=== PATIENT | male | born 1955 | race Caucasian/White ===

== ENCOUNTER 2017-07-29 09:31 | Observation (INO) | payer OTHER, BC ==
[2017-07-29] MEDS ORDERED: Sodium Chloride 0.9% 2.5 ML Syringe FLUSH PRN ×2 (09:47→13:00)
[2017-07-29] MEDS ORDERED: Famotidine 20 MG/2 ML SDV IVPUSH ONE (09:47)
[2017-07-29] MEDS ORDERED: Sodium Chloride 0.9% 10 ML Syringe FLUSH PRN ×2 (09:47→13:00)
--- NOTE | 2017-07-29 09:50 | EDM.PDOC ---
ED HPI GENERAL MEDICAL PROBLEM - General Chief Complaint: Chest Pain Stated Complaint: AMB Time Seen by Provider: 07/29/17 09:47 Source of Information: Reports: Patient History Limitations: Reports: No Limitations - History of Present Illness INITIAL COMMENTS - FREE TEXT/NARRATIVE: History of present illness: []Patient was unloading a semitruck when he started having nonradiating substernal chest pain at 8:50 this morning. He denies any shortness of breath, sweating, dizziness, nausea, vomiting, lightheadedness or syncope. She does have a history of GERD. On EMS arrival patient was found to be hypertensive and 214/110. Patient notes that yesterday he had a similar episode that just lasted a few minutes and then subsided spontaneously. Review of systems: As per history of present illness and below otherwise all systems reviewed and negative. Past medical history: As per history of present illness and as reviewed below otherwise noncontributory. Surgical history: As per history of present illness and as reviewed below otherwise noncontributory. Social history: No reported history of drug or alcohol abuse. Family history: As per history of present illness and as reviewed below otherwise noncontributory. Physical exam: General: Well developed, well nourished in NAD HEENT: Atraumatic, normocephalic, pupils reactive, negative for conjunctival pallor or scleral icterus, mucous membranes moist, throat clear, neck supple, nontender, trachea midline. Lungs: Clear to auscultation, breath sounds equal bilaterally, chest nontender. Heart: S1S2, regular, negative for clicks, rubs, or JVD. Abdomen: Soft, nondistended, nontender. Negative for masses or hepatosplenomegaly. Negative for costovertebral tenderness. Pelvis: Stable nontender. Genitourinary: Deferred. Rectal: Deferred. Extremities: Atraumatic, negative for cords or calf pain. Neurovascular unremarkable. Neuro: Awake, alert, oriented. Cranial nerves II through XII unremarkable. Cerebellum unremarkable. Motor and sensory unremarkable throughout. Exam nonfocal. Diagnostics: []EKG without ischemic changes, chest x-ray is negative, labs normal and negative troponin Therapeutics: []Nitroglycerin with improvement of pain aspirin given prior to arrival at by EMS Impression: []Acute coronary syndrome Plan: []Admit for observation Definitive disposition and diagnosis as appropriate pending reevaluation and review of above. chest Pain Score (Numeric/FACES): 1 - Related Data Allergies Allergy/AdvReac Type Severity Reaction Status Date / Time No Known Allergies Allergy Verified 07/29/17 10:05 Home Meds: Home Meds . [Unable to Verify Home Med List] 07/29/17 [History] ED ROS GENERAL - Review of Systems Review Of Systems: See Below (See history of present illness) ED EXAM, GENERAL - Physical Exam Exam: See Below (See history of present illness) Course - Vital Signs Last Recorded V/S: Last Vital Signs Temp 97.8 F 07/29/17 09:35 Pulse 73 07/29/17 10:21 Resp 18 07/29/17 10:21 BP 126/82 07/29/17 10:21 Pulse Ox 95 07/29/17 10:21 - Orders/Labs/Meds Orders: Active Orders 24 hr Category Date Time Status Patient Status [ADT] Stat ADT 07/29/17 11:23 Active EKG Documentation Completion [RC] STAT Care 07/29/17 09:47 Active Oxygen Therapy, ED [RC] ASDIRECTED Care 07/29/17 09:47 Active Nitroglycerin [Nitrostat] Med 07/29/17 09:47 Active 0.4 mg SL Q5M PRN Sodium Chloride 0.9% [Saline Flush] Med 07/29/17 09:47 Active 10 ml FLUSH ASDIRECTED PRN Sodium Chloride 0.9% [Saline Flush] Med 07/29/17 09:47 Active 2.5 ml FLUSH ASDIRECTED PRN Saline Lock Insert [OM.PC] Stat Oth 07/29/17 09:47 Ordered Medication Orders Nitroglycerin (Nitrostat) 0.4 mg SL Q5M PRN PRN Reason: Chest Pain Last Admin: 07/29/17 10:20 Dose: 0.4 mg Admin: 07/29/17 10:10 Dose: 0.4 mg Sodium Chloride (Saline Flush) 10 ml FLUSH ASDIRECTED PRN PRN Reason: Keep Vein Open Last Admin: 07/29/17 10:46 Dose: 10 ml Sodium Chloride (Saline Flush) 2.5 ml FLUSH ASDIRECTED PRN PRN Reason: Keep Vein Open Last Admin: 07/29/17 10:46 Dose: 2.5 ml Labs: Laboratory Tests 07/29/17 07/29/17 Range/Units 10:01 10:01 WBC 4.16 (4.0-11.0) K/uL RBC 5.17 (4.50-5.90) M/uL Hgb 13.6 (13.0-17.0) g/dL Hct 41.5 (38.0-50.0) % MCV 80.3 (80.0-98.0) fL MCH 26.3 L (27.0-32.0) pg MCHC 32.8 (31.0-37.0) g/dL RDW Std Deviation 49.2 (28.0-62.0) fl RDW Coeff of Man 17 H (11.0-15.0) % Plt Count 258 (150-400) K/uL MPV 9.60 (7.40-12.00) fL Neut % (Auto) 52.9 (48.0-80.0) % Lymph % (Auto) 34.6 (16.0-40.0) % [place] % (Auto) 10.8 (0.0-15.0) % Eos % (Auto) 1.2 (0.0-7.0) % Baso % (Auto) 0.5 (0.0-1.5) % Neut # (Auto) 2.2 (1.4-5.7) K/uL Lymph # (Auto) 1.4 (0.6-2.4) K/uL [place] # (Auto) 0.5 (0.0-0.8) K/uL Eos # (Auto) 0.1 (0.0-0.7) K/uL Baso # (Auto) 0.0 (0.0-0.1) K/uL Nucleated RBC % 0.0 /100WBC Nucleated RBCs # 0 K/uL Sodium 138 (136-146) mmol/L Potassium 4.1 (3.5-5.1) mmol/L Chloride 104 (98-110) mmol/L Carbon Dioxide 25 (21-31) mmol/L BUN 10 (6.0-23.0) mg/dL Creatinine 0.8 (0.6-1.5) mg/dL Est Cr Clr Drug Dosing 99.35 mL/min Estimated GFR (MDRD) > 60.0 ml/min Glucose 128 H (60-110) mg/dL Calcium 9.1 (8.8-10.8) mg/dL Total Bilirubin 0.4 (0.1-1.5) mg/dL AST 15 (5-40) IU/L ALT 18 (8-54) IU/L Alkaline Phosphatase 72 (40-150) Troponin I < 0.10 (0.0-0.29) NG/ML Total Protein 7.0 (6.0-8.0) g/dL Albumin 4.2 (3.4-4.8) g/dL Globulin 2.8 (2.0-3.5) g/dL Albumin/Globulin Ratio 1.5 (1.3-2.8) Meds: Medications Generic Name Dose Route Start Last Admin Trade Name F[place]a PRN Reason Stop Dose Admin Nitroglycerin 0.4 mg 07/29/17 09:47 07/29/17 10:20 Nitrostat SL 0.4 mg Q5M PRN Administration Chest Pain Sodium Chloride 10 ml 07/29/17 09:47 07/29/17 10:46 Saline Flush FLUSH 10 ml ASDIRECTED PRN Administration Keep Vein Open Sodium Chloride 2.5 ml 07/29/17 09:47 07/29/17 10:46 Saline Flush FLUSH 2.5 ml ASDIRECTED PRN Administration Keep Vein Open Discontinued Medications Generic Name Dose Route Start Last Admin Trade Name Franc PRN Reason Stop Dose Admin Famotidine 20 mg 07/29/17 09:47 07/29/17 10:11 Pepcid IVPUSH 07/29/17 09:48 20 mg ONETIME ONE Administration Departure - Departure Time of Disposition: 11:25 Disposition: Refer to Observation Condition: Good Clinical Impression: Acute coronary syndrome Forms: ED Department Discharge - My Orders Last 24 Hours: My Active Orders 07/29/17 09:47 EKG Documentation Completion [RC] STAT Oxygen Therapy, ED [RC] ASDIRECTED Nitroglycerin [Nitrostat] 0.4 mg SL Q5M PRN Sodium Chloride 0.9% [Saline Flush] 10 ml FLUSH ASDIRECTED PRN Sodium Chloride 0.9% [Saline Flush] 2.5 ml FLUSH ASDIRECTED PRN Saline Lock Insert [OM.PC] Stat 07/29/17 11:23 Patient Status [ADT] Stat - Assessment/Plan Last 24 Hours: My Active Orders 07/29/17 09:47 EKG Documentation Completion [RC] STAT Oxygen Therapy, ED [RC] ASDIRECTED Nitroglycerin [Nitrostat] 0.4 mg SL Q5M PRN Sodium Chloride 0.9% [Saline Flush] 10 ml FLUSH ASDIRECTED PRN Sodium Chloride 0.9% [Saline Flush] 2.5 ml FLUSH ASDIRECTED PRN Saline Lock Insert [OM.PC] Stat 07/29/17 11:23 Patient Status [ADT] Stat
[2017-07-29] MEDS: Nitroglycerin 0.4 MG Tab.SL SL PRN ×2 (10:10→10:20)
--- NOTE | 2017-07-29 10:37 | CR ---
EXAMINATION: Portable chest radiograph. HISTORY: Shortness of breath. FINDINGS: The trachea is midline. The cardiomediastinal silhouette is within normal limits. No pulmonary infilt rates, effusions or pneumothorax. Mild interstitial prominence. Probable moderate hiatal hernia. Osseous structures appear unremarkable. IMPRESSION: No acute cardiopulmonary process.
[2017-07-29 11:04] LABS: CHLORIDE,CL 104 mmol/L (98-110); SODIUM,NA 138 mmol/L (136-146)
[2017-07-29] MEDS ORDERED: Morphine 2 MG/ML Syringe IVPUSH ONE (12:33)
[2017-07-29] MEDS ORDERED: Acetaminophen 325 MG Tab PO PRN (13:00)
[2017-07-29] MEDS ORDERED: Morphine 2 MG/ML Syringe IVPUSH PRN (13:00)
[2017-07-29] MEDS ORDERED: Ondansetron 4 MG/2 ML SDV IVPUSH PRN (13:00)
[2017-07-29] MEDS ORDERED: Ketorolac 30 MG/ML SDV IV PRN (13:00)
[2017-07-29] MEDS ORDERED: Alum Hydrox/Mag Hydrox/Simeth 15 ML, Metoclopramide 5 MG, Lidocaine 2% 5 ML PO ONE ×3 (13:30)
--- NOTE | 2017-07-29 13:47 | PCM.HP ---
H&P History of Present Illness - General Date of Service: 07/29/17 Admit Problem/Dx: Admission Diagnosis/Problem Admission Diagnosis/Problem Acute coronary syndrome Source of Information: Patient History Limitations: Reports: No Limitations - History of Present Illness Initial Comments - Free Text/Narative: This is a 62-year-old male presenting with acute chest pain. Patient says the chest pain started yesterday, it is central chest in nature, burning sensation. Patient stated that yesterday the pain came about for about 30 minutes and then dissipated. Patient states that he does not take any medications to reduce the pain yesterday. He states that he was working when the pain occurred. Patient states that this morning the pain started around 8: 30 while he was unloading a truck at work. He states the pain was substernal in nature nonradiating, a burning sensation. Patient denied any pressure type symptoms, any radiation to the arm, any shortness of breath, sweating, nausea, vomiting, lightheadedness or syncopal episode. Patient's only medical history is gastroesophageal reflux disease for which he states he takes a PPI. Patient denies any cardiovascular history, patient denies any hypertension or hyperlipidemia history, nor any diabetes history.Patient denies any [place] history/ in his family, patient states that his father possibly had a TIA early on which resolved and did not have any further symptoms. In the ER, patient received sublingual nitroglycerin and aspirin which alleviated his pain., EKG did not show any ischemic changes, chest x-ray showed no cardiopulmonary process, labs were relatively normal with the exception of an elevated glucose level. In first set of troponins were negative. Onset of Symptoms: Reports: Today, Sudden chest Pain Score (Numeric/FACES): 10 - Related Data Allergies/Adverse Reactions: Allergies Allergy/AdvReac Type Severity Reaction Status Date / Time No Known Allergies Allergy Verified 07/29/17 10:05 Home Medications: Home Meds . [Unable to Verify Home Med List] 07/29/17 [History] Past Medical History HEENT History: Reports: Impaired Vision Gastrointestinal History: Reports: GERD - Infectious Disease History Infectious Disease History: Reports: Chicken Pox, Measles, Mumps, Shingles - Past Surgical History Other Male Surgeries/Procedures: "bladder surgery" Musculoskeletal Surgical History: Reports: Other (See Below) Other Musculoskeletal Surgeries/Procedures:: left shoudler pins Social & Family History - Family History Family Medical History: Noncontributory - Tobacco Use Smoking Status *Q: Former Smoker Used Tobacco, but Quit: Yes Month Tobacco Last Used: 1979 - Recreational Drug Use Recreational Drug Use: No H&P Review of Systems - Review of Systems: Review Of Systems: ROS reveals no pertinent complaints other than HPI. Exam - Exam Exam: See Below - Vital Signs Vital Signs: Last Vital Signs Temp 36.6 C 07/29/17 09:35 Pulse 73 07/29/17 10:21 Resp 18 07/29/17 10:21 BP 126/82 07/29/17 10:21 Pulse Ox 95 07/29/17 10:21 Weight: 92.986 kg - Exam General: Alert, Cooperative HEENT: Conjunctiva Clear, Mucosa Moist & [place] Neck: Supple, Trachea Midline Lungs: Clear to Auscultation, Normal Respiratory Effort Cardiovascular: Regular Rate, Regular Rhythm, Other GI/Abdominal Exam: Normal Bowel Sounds Extremities: Normal Inspection, Normal Range of Motion, No Pedal Edema, Normal Capillary Refill - Patient Data Result Diagrams: 07/29/17 10:01 07/29/17 10:01 EKG INTERPRETATION EKG Date: 07/29/17 Time: 13:00 Rhythm: NSR [place]: Normal P-Wave: Present QRS: Normal ST-T: Normal QT: Normal Comparison: No Change *Q Meaningful Use (ADM) - VTE *Q VTE Criteria *Q: - Stroke *Q Stroke Criteria *Q: - AMI *Q AMI Criteria *Q: - Problem List (1) Gastroesophageal reflux disease SNOMED Code(s): 181281222 ICD Code: K21.9 - GASTRO-ESOPHAGEAL REFLUX DISEASE WITHOUT ESOPHAGITIS Status: Acute Current Visit: Yes (2) Atypical chest pain SNOMED Code(s): 336188282 ICD Code: R07.89 - OTHER CHEST PAIN Status: Acute Current Visit: Yes (3) History of herpes zoster SNOMED Code(s): 910163618966702 ICD Code: Z86.19 - PERSONAL HISTORY OF OTHER INFECTIOUS AND PARASITIC DISEASES Status: Acute Current Visit: Yes (4) Acute coronary syndrome SNOMED Code(s): 540748771 ICD Code: I24.9 - ACUTE ISCHEMIC HEART DISEASE, UNSPECIFIED Status: Acute Current Visit: Yes Problem List Initiated/Reviewed/Updated: Yes Orders Last 24hrs: Active Orders 24 hr Category Date Time Status Patient Status [ADT] Routine ADT 07/29/17 13:02 Active Antiembolic Devices [RC] PER UNIT ROUTINE Care 07/29/17 13:05 Active Cardiac Monitoring [RC] CONTINUOUS Care 07/29/17 13:03 Active EKG Documentation Completion [RC] PRN Care 07/29/17 13:00 Active EKG Documentation Completion [RC] STAT Care 07/29/17 12:37 Active Height and Weight [RC] UPON Care 07/29/17 13:00 Active Intake and Output [RC] QSHIFT Care 07/29/17 13:03 Active Notify Provider Vital Signs [RC] ASDIRECTED Care 07/29/17 13:03 Active Oxygen Therapy [RC] PRN Care 07/29/17 13:02 Active Peripheral IV Care [RC] . DIRECTED Care 07/29/17 13:00 Active Pulse Oximetry [RC] PRN Care 07/29/17 13:03 Active Telemetry Monitoring [Cardiac Monitoring] [RC] . Care 07/29/17 13:32 Active DIRECTED Up With Assistance [RC] ASDIRECTED Care 07/29/17 13:00 Active VTE/DVT Education [RC] PER UNIT ROUTINE Care 07/29/17 13:02 Active Vital Signs [RC] Q4H Care 07/29/17 13:02 Active Heart Healthy Diet [DIET] Diet 07/29/17 Breakfast Active BASIC METABOLIC PANEL,BMP [CHEM] AM Lab 07/30/17 05:11 Ordered CBC WITH AUTO DIFF [HEME] AM Lab 07/30/17 05:11 Ordered GLYCOSYLATED HEMOGLOBIN,HGBA1C [CHEM] Stat Lab 07/29/17 10:01 Received TROPONIN I [CHEM] Q8H Lab 07/29/17 20:30 Ordered TROPONIN I [CHEM] Q8H Lab 07/30/17 04:30 Ordered UA W/MICROSCOPIC [URIN] Routine Lab 07/29/17 13:26 Ordered Acetaminophen [Tylenol] Med 07/29/17 13:00 Active 650 mg PO Q4H PRN Enoxaparin [Lovenox] Med 07/30/17 09:00 Active 40 mg SUBCUT DAILY Ketorolac [Toradol] Med 07/29/17 13:00 Active 30 mg IV Q6H PRN Morphine Med 07/29/17 13:00 Active 2 mg IVPUSH Q2H PRN Ondansetron [Zofran] Med 07/29/17 13:00 Active 4 mg IVPUSH Q4H PRN Pantoprazole [ProTONIX IV] Med 07/29/17 21:00 Active 40 mg IV Q12HR Sodium Chloride 0.9% [Saline Flush] Med 07/29/17 13:00 Active 10 ml FLUSH ASDIRECTED PRN Sodium Chloride 0.9% [Saline Flush] Med 07/29/17 13:00 Active 2.5 ml FLUSH ASDIRECTED PRN Peripheral IV Insertion Adult [OM.PC] Routine Oth 07/29/17 13:00 Ordered Saline Lock Insert [OM.PC] Routine Oth 07/29/17 13:00 Ordered Sequential Compression Device [OM.PC] Per Unit Routine Oth 07/29/17 13:04 Ordered Resuscitation Status Routine Resus Stat 07/29/17 13:00 Ordered Medication Orders Acetaminophen (Tylenol) 650 mg PO Q4H PRN PRN Reason: Pain (Mild 1-3)/fever Enoxaparin Sodium (Lovenox) 40 mg SUBCUT DAILY DEVIN Ketorolac Tromethamine (Toradol) 30 mg IV Q6H PRN PRN Reason: Pain (moderate 4-6) Morphine Sulfate (Morphine) 2 mg IVPUSH Q2H PRN PRN Reason: Pain (severe 7-10) Stop: 07/30/17 13:04 Nitroglycerin (Nitrostat) 0.4 mg SL Q5M PRN PRN Reason: Chest Pain Last Admin: 07/29/17 10:20 Dose: 0.4 mg Admin: 07/29/17 10:10 Dose: 0.4 mg Ondansetron HCl (Zofran) 4 mg IVPUSH Q4H PRN PRN Reason: Nausea/Vomiting Pantoprazole Sodium (Protonix Iv) 40 mg IV Q12HR DEVIN Sodium Chloride (Saline Flush) 10 ml FLUSH ASDIRECTED PRN PRN Reason: Keep Vein Open Last Admin: 07/29/17 10:46 Dose: 10 ml Sodium Chloride (Saline Flush) 2.5 ml FLUSH ASDIRECTED PRN PRN Reason: Keep Vein Open Last Admin: 07/29/17 10:46 Dose: 2.5 ml Sodium Chloride (Saline Flush) 10 ml FLUSH ASDIRECTED PRN PRN Reason: Keep Vein Open Sodium Chloride (Saline Flush) 2.5 ml FLUSH ASDIRECTED PRN PRN Reason: Keep Vein Open Assessment/Plan Comment:: Impressions: This is a 62-year-old male presenting with anterior chest pain which is burning in nature that is alleviated with nitroglycerin with a normal EKG and a relatively benign laboratory levels including troponin most likely etiology is atypical chest pain secondary to gastroesophageal reflux disease other etiologies to consider however unlikely include acute coronary syndrome, costochondritis is, reactivation of herpes zoster infection. Assessment: #1. Atypical chest pain burning in nature of the anterior chest without any radiation most likely etiology is gastroesophageal reflux disease other etiologies to rule out include acute coronary syndrome, costochondritis is, and reactivation of herpes zoster infection #2. Gastroesophageal reflux disease history #3. Elevated blood glucose and CMP #4. History of gastroesophageal reflux disease as well as herpes zoster infection. #1. Admit the patient under observation, anticipated length of stay is less than 2 midnights, patient is full code #2 vitals per unit protocol, continuous telemetry/cardiac monitoring, up with assistance for movement, heart healthy diet #3. For the atypical chest pain, ACS rule out with troponins 3, EKG when necessary for acute chest pain with initial notification to the provider prior to obtaining ECG. #4. For the atypical chest pain GI cocktail one time, sublingual nitroglycerin when necessary for chest pain, morphine when necessary for chest pain. #5. CBC, BMP in the a.m., troponin x3 every 8 hours, hemoglobin A1c, UA #6. Anticipated discharge tomorrow in a.m. provided troponins are negative 3 and patient is stable.
[2017-07-29] MEDS ORDERED: Alum Hydrox/Mag Hydrox/Simeth 15 ML, Lidocaine 2% 5 ML PO ONE ×2 (16:33)
[2017-07-29] MEDS ORDERED: Metoprolol Tartrate 5 MG/5 ML SDV IVPUSH ONE (19:16)
[2017-07-29] MEDS ORDERED: Pantoprazole 40 MG Vial IV SCH (21:00)
[2017-07-29] MEDS ORDERED: Aspirin 325 MG Tab PO ONE (21:26)
[2017-07-29] MEDS ORDERED: Aspirin 81 MG Tab.Chew PO STA (21:33)
[2017-07-29] MEDS ORDERED: Enoxaparin 100 MG/1 ML Syringe SUBCUT ONE (22:04)
--- NOTE | 2017-07-29 22:19 | PCM.DCSUM1 ---
Discharge Summary - Discharge Data Discharge Date: 07/29/17 Discharge Disposition: DC/Tfer to Acute Hospital 02 Condition: Stable - Patient Summary/Data Hospital Course: 62 yo male with pmh of hypertension who presents with two day history of chest pain. The pain is substernal intermittent burning pain. It occurs with exertion and gets better with rest. This morning he had a severe episode of chest pain that lasted for several hours. It did improve with nitro that was given by EMS. Initial EKG and troponin were negative for signs of ischemia. His blood pressure was noted to be in the 180s-200s systolic he received lopressor with improvement in his BP in the 140s. His second troponin was elevated at 0.83. He has received ASA and lovenox. He currently is chest pain free. I spoke with Dr. Sales at [facility] in [place] who has accepted the patient. Transportation has been arranged. - Discharge Plan Home Medications: Home Meds . [Unable to Verify Home Med List] 07/29/17 [History] Forms: ED Department Discharge - Patient Data Vitals - Most Recent: Last Vital Signs Temp 36.9 C 07/29/17 17:02 Pulse 75 07/29/17 21:17 Resp 18 07/29/17 21:17 BP 144/92 H 07/29/17 21:17 Pulse Ox 98 07/29/17 21:17 Weight - Most Recent: 92.986 kg I&O - Last 24 hours: Intake & Output 07/29/17 07/29/17 07/29/17 06:59 14:59 22:59 Intake Total 200 Balance 200 Lab Results - Last 24 hrs: Laboratory Results - last 24 hr 07/29/17 07/29/17 Range/Units 15:10 20:37 Troponin I 0.83 H* (0.0-0.29) NG/ML Urine Color YELLOW Urine Appearance CLEAR Urine pH 7.0 (5.0-8.0) Ur Specific [place] 1.015 (1.001-1.035) Urine Protein TRACE (NEGATIVE) mg/dL Urine Glucose (UA) NEGATIVE (NEGATIVE) mg/dL Urine Ketones NEGATIVE (NEGATIVE) mg/dL Urine Occult Blood NEGATIVE (NEGATIVE) Urine Nitrite NEGATIVE (NEGATIVE) Urine Bilirubin NEGATIVE (NEGATIVE) Urine Urobilinogen 0.2 (<2.0) EU/dL Ur Leukocyte Esterase NEGATIVE (NEGATIVE) Urine RBC 0-1 (0-2/HPF) Urine WBC 0-1 (0-5/HPF) Ur Epithelial Cells RARE (NONE-FEW) Urine Bacteria RARE (NEGATIVE) Urine Mucus LIGHT (NONE-MOD) Med Orders - Current: Current Medications Acetaminophen (Tylenol) 650 mg PO Q4H PRN PRN Reason: Pain (Mild 1-3)/fever Enoxaparin Sodium (Lovenox) 40 mg SUBCUT DAILY [facility] Ketorolac Tromethamine (Toradol) 30 mg IV Q6H PRN PRN Reason: Pain (moderate 4-6) Last Admin: 07/29/17 16:34 Dose: 30 mg Morphine Sulfate (Morphine) 2 mg IVPUSH Q2H PRN PRN Reason: Pain (severe 7-10) Stop: 07/30/17 13:04 Last Admin: 07/29/17 15:05 Dose: 2 mg Nitroglycerin (Nitrostat) 0.4 mg SL Q5M PRN PRN Reason: Chest Pain Last Admin: 07/29/17 10:20 Dose: 0.4 mg Ondansetron HCl (Zofran) 4 mg IVPUSH Q4H PRN PRN Reason: Nausea/Vomiting Pantoprazole Sodium (Protonix Iv) 40 mg IV Q12HR DEVIN Last Admin: 07/29/17 21:49 Dose: 40 mg Sodium Chloride (Saline Flush) 10 ml FLUSH ASDIRECTED PRN PRN Reason: Keep Vein Open Last Admin: 07/29/17 10:46 Dose: 10 ml Sodium Chloride (Saline Flush) 2.5 ml FLUSH ASDIRECTED PRN PRN Reason: Keep Vein Open Last Admin: 07/29/17 10:46 Dose: 2.5 ml Sodium Chloride (Saline Flush) 10 ml FLUSH ASDIRECTED PRN PRN Reason: Keep Vein Open Sodium Chloride (Saline Flush) 2.5 ml FLUSH ASDIRECTED PRN PRN Reason: Keep Vein Open Discontinued Medications Aspirin (Aspirin) 162 mg PO ONETIME STA Stop: 07/29/17 21:34 Last Admin: 07/29/17 21:48 Dose: 162 mg Al Hydroxide/Mg Hydroxide 15 ml/ Metoclopramide HCl 5 mg/Lidocaine HCl 5 ml 0 ml PO ONETIME ONE Stop: 07/29/17 13:31 Last Admin: 07/29/17 13:30 Dose: 1 each Al Hydroxide/Mg Hydroxide 15 (ml/ Lidocaine HCl 5 ml) 0 ml PO ONETIME ONE Stop: 07/29/17 16:34 Last Admin: 07/29/17 17:36 Dose: 1 each Enoxaparin Sodium (Lovenox) 90 mg SUBCUT ONETIME ONE Stop: 07/29/17 22:05 Famotidine (Pepcid) 20 mg IVPUSH ONETIME ONE Stop: 07/29/17 09:48 Last Admin: 07/29/17 10:11 Dose: 20 mg Metoprolol Tartrate (Lopressor) 5 mg IVPUSH ONETIME ONE Stop: 07/29/17 19:17 Last Admin: 07/29/17 19:25 Dose: 5 mg Morphine Sulfate (Morphine) 1 mg IVPUSH ONETIME ONE Stop: 07/29/17 12:34 Last Admin: 07/29/17 13:18 Dose: 1 mg *Q Meaningful Use (DIS) - VTE *Q VTE Criteria *Q: - Stroke *Q Stroke Criteria *Q: - AMI *Q AMI Criteria *Q:
[2017-07-29] MEDS ORDERED: Metoprolol Tartrate 25 MG Tab PO STA (23:11)
[2017-07-30] MEDS ORDERED: Enoxaparin 40 MG/0.4 ML Syringe SUBCUT SCH (09:00)
== END 2017-07-30 01:00 ==
LOC: MW.ED 09:31 → MW.MS 11:23
PROVIDERS: ADMIT Family Medicine; ATTEND Family Medicine
DX: R07.89 Other chest pain (principal); I10 Essential (primary) hypertension; R73.9 Hyperglycemia, unspecified; K21.9 Gastro-esophageal reflux disease without esophagitis; Z79.899 Other long term (current) drug therapy; Z87.891 Personal history of nicotine dependence; Z86.19 Personal history of other infectious and parasitic diseases
CPT/HCPCS: 36415; 71045; 80053; 80061; 81001; 83036; 84484; 85025; 93005; 96372; 96374; 96375; 96376; 99285; A9270; C9113; G0378; J1650; J1885; J2270; 99284